=== PATIENT | female | born 1995 | race Caucasian/White ===

== ENCOUNTER 2016-10-25 21:01 | Emergency (ER) | payer OTHER ==
[~2016-10-25] VITALS: Ht 154.9 cm; Wt 61.9 kg
[2016-10-25 21:05] VITALS: TEMP 36.3; Ht 154.9 cm; Wt 61.9 kg
[2016-10-25] MEDS ORDERED: DEXAMETHASONE SOD INJ 4 MG/ML VIAL IV STA (22:07)
[2016-10-25] MEDS ORDERED: PROCHLORPERAZINE 5 MG/ML 2 ML VIAL IV STA (22:07)
[2016-10-25] MEDS ORDERED: KETOROLAC TROMETHAMINE 15 MG/ML VIAL IV STA (22:07)
[2016-10-25] MEDS ORDERED: SODIUM CHLORIDE 0.9% 1000ML 1,000 ML IV STA (22:07)
[2016-10-25] MEDS ORDERED: DiphenhydrAMINE HCL 50 MG/ML VIAL IV STA (22:07)
[2016-10-25] MEDS ORDERED: KETOROLAC TROMETHAMINE 30 MG/ML VIAL ONE (22:14)
[2016-10-25] MEDS ORDERED: BCPILLS PO (23:22)
--- NOTE | 2016-10-25 23:49 | EMERGENCY ROOM VISIT NOTE ---
History First contact with patient: 21:50 Chief Complaint: HEADACHE Stated Complaint: HEADACHE,NUMBNESS/TINGLING IN HEAD, BLURRED VISION History of Present Illness The patient is a 21 year old female who presents to the Emergency Room with complaints of a migraine headache which started approximately 5 hours ago. The patient states that She has a history of migraines and this feels like a typical migraine for her. She reports that prior to the onset of migraine, she had blurred vision. The headache is right-sided. She has associated nausea, but no vomiting. She took ibuprofen and Imitrex without relief. She does not see a neurologist, but sees her PCP at home regarding her migraines. She has had to come to ERs before for her migraines. She denies any recent illnesses, fevers/chills, neck pain/ stiffness, numbness or weakness. Review of Systems A complete 10 point review of systems was reviewed with the patient with pertinent positives and negatives as per history of present illness. All else were negative. Social History Smoking Status: Never Smoker Current/Historical Medications Scheduled Control Pills ( Control Pills), 1 TAB PO DAILY Physical Exam Vital Signs Date Time Temp Pulse Resp B/P (MAP) Pulse Ox O2 Delivery O2 Flow Rate FiO2 10/26/16 00:01 77 17 122/75 100 10/25/16 22:50 65 17 124/106 98 Room Air 10/25/16 21:55 62 15 147/98 99 Room Air 10/25/16 21:05 36.3 93 18 140/95 92 Room Air Physical Exam VITALS: Vitals are noted on the nurse's note and reviewed by myself. Vital signs stable. GENERAL: This is a 21-year-old female, in no acute distress, nondiaphoretic, well-developed well-nourished. SKIN: The skin was without rashes. HEAD: Normocephalic atraumatic. EARS: External auditory canals clear, tympanic membranes pearly machuca without erythema or effusion bilaterally. EYES: Pupils equal round and reactive to light and accommodation. Conjunctivae without injection, sclerae without icterus. Extraocular movements intact. MOUTH: Mucous membranes moist. Tonsils are not enlarged. Pharynx without erythema or exudate. NECK: Supple without nuchal rigidity. No lymphadenopathy. No meningismus. HEART: Regular rate and rhythm without murmurs gallops or rubs. LUNGS: Clear to auscultation bilaterally without wheezes, rales or rhonchi. MUSCULOSKELETAL: Full range of motion throughout. Strength 5/5 throughout. NEURO: Patient was alert and oriented to person place and time. Normal sensation to light and sharp touch. No focal neurological deficits. Medical Decision & Procedures Medications Administered Medications (Trade) Dose Ordered Sig/Judith Route Start Time Stop Time Status Last Admin Dose Admin Dexamethasone Sodium Phosphate (Decadron Inj) 10 mg NOW STAT IV 10/25/16 22:07 10/25/16 22:10 DC 10/25/16 22:41 10 MG Diphenhydramine HCl (Benadryl Inj) 25 mg NOW STAT IV 10/25/16 22:07 10/25/16 22:10 DC 10/25/16 22:41 25 MG Prochlorperazine Edisylate (Compazine Inj) 10 mg NOW STAT IV 10/25/16 22:07 10/25/16 22:10 DC 10/25/16 22:40 10 MG Ketorolac Tromethamine (Toradol Inj) 15 mg NOW STAT IV 10/25/16 22:07 10/25/16 22:10 DC 10/25/16 22:07 15 MG Sodium Chloride 1,000 ml @ 999 mls/hr Q1H1M STAT IV 10/25/16 22:07 10/25/16 23:07 DC 10/25/16 22:42 999 MLS/HR ED Course The patient was evaluated as above. Labs were drawn and IV access was obtained. Patient was medicated with 25 mg Benadryl, and 10 mg Compazine, 10 mg drawn and 15 mg Toradol IV. She was hydrated with 1 L normal saline solution. Patient was reevaluated and stated she felt much better. She is ready for discharge. Discharge instructions were reviewed with the patient. The patient verbalized understanding of my assessment and treatment plan and was discharged home in good condition. Medical Decision The differential diagnosis includes acute intracranial bleed, meningitis, encephalitis, mass or mass effect, sinusitis, infection, tumor, headache, temporal arteritis and carbon monoxide exposure, and migraine. The patient is a 21-year-old female who presents today complaining of a headache consistent with previous migraines she has had. She is afebrile. There is no evidence of meningitis or encephalitis on exam. This is not the worst headache of her life. She felt much better after receiving the above treatment. She felt ready to be discharged home. The patient was educated to return to the emergency department for any worsening of their current condition or new/concerning symptoms. She will follow up with her PCP. Medication Reconcilliation Current Medication List: was personally reviewed by me Blood Pressure Screening Patient's blood pressure: Elevated blood pressure Blood pressure disposition: Elevated BP felt to be situational Impression Primary Impression: Migraine Departure Information Dispostion Home / Self-Care Condition GOOD Referrals [facility] (PCP) Patient Instructions My [facility] Additional Instructions You have been treated in the Emergency Department for a Headache. You have received pain medicine in the emergency department which impairs your ability to operate a vehicle. It is illegal for you to drive after receiving these medicines. For pain control, you can use the following [id number] medicines (if >12 yo): - Regular strength (325mg/tab) Tylenol (acetaminophen) 2 tabs every 4-6 hours as needed. Do not exceed 12 tablets in a 24 hour period. Avoid taking more than 4 grams (4000 mg) of Tylenol per day. This includes any other sources of acetaminophen you may take on a regular basis. - Regular strength (200 mg/tab) Advil (ibuprofen) 1-2 tabs every 4-6 hours as needed. Do not exceed a dose of 3200 mg per day. You should relax in a quiet, dark place for the rest of the day. Avoid any possible triggers including: cigarette smoke, caffeine, nicotine, chocolate, wine, beer, loud noises or music, or bright lights. You should schedule a follow-up appointment in 2-3 days with your Primary Care Provider or established Neurologist for further evaluation and treatment of your Headache. Return to the Emergency Department if your current symptoms worsen despite treatment course outlined above, or if you develop any of the following symptoms : intractable pain despite aforementioned treatment course, visual disturbances , loss of vision, unilateral weakness or facial drooping, slurring of speech, loss of coordination, or loss of consciousness.
[2016-10-26 00:01] VITALS: BP 122/75; PULSE 77; O2SAT 100
== END 2016-10-26 | disposition home or self-care (01) ==
LOC: C.EDB 21:03
DX: G43.909 Migraine, unspecified, not intractable, without status migrainosus (principal)

== ENCOUNTER 2017-03-24 15:48 | Emergency (ER) | payer OTHER ==
[~2017-03-24] VITALS: Ht 154.9 cm; Wt 61.1 kg
[2017-03-24 16:00] VITALS: Ht 154.9 cm; Wt 61.1 kg
[2017-03-24] MEDS ORDERED: KETOROLAC TROMETHAMINE 30 MG/ML VIAL IV STA (16:15)
[2017-03-24] MEDS ORDERED: DiphenhydrAMINE HCL 50 MG/ML VIAL IV STA (16:15)
[2017-03-24] MEDS ORDERED: SODIUM CHLORIDE 0.9% 1000ML 1,000 ML IV STA (16:15)
[2017-03-24] MEDS ORDERED: PROCHLORPERAZINE 5 MG/ML 2 ML VIAL IV STA (16:15)
--- NOTE | 2017-03-24 16:17 | EMERGENCY ROOM VISIT NOTE ---
History Report prepared by Courtney: Rafita Peacock Under the Supervision of: Dr. Ning Miranda D.O. First contact with patient: 16:04 Chief Complaint: VERTIGO Stated Complaint: VERTIGO, HEADACHE,NAUSEA Nursing Triage Summary: pt states she was standing at work and her vision 'went black" continues visual loss,breathing hard hands numb, nausea hx of vertigo and migraine pt took medication at 1230 wutg no relief History of Present Illness The patient is a 21 year old female with a history of migraines who presents to the Emergency Room with complaints of a persistent headache that started earlier today. She says that she was at work and it was going normally, but while she was standing, she was unable to see the top-half of her visual field, especially on the periphery. Not sudden onset of headache, however gradually worsening. The patient states that she normally gets visual difficulties like this before getting a migraine headache, and today, the migraine headache came on again. The patient adds that the headache is on her left side and radiates to the front a bit. She notes that she is sensitive to noise today with her headache. The patient notes that her headache location varies regarding her previous ones. She states that she gets headaches this badly 6 to 7 times per year, but usually Sumatriptan works for her, but today, the Sumatriptan did not work. The patient says that she is still nauseous. She adds that she is dizzy and lightheaded, but does not feel like she is going to pass out. She notes that she had an episode of numbness and tingling of her hands prior to arrival, and that is normal with her headaches. The patient says that she has been diagnosed with migraines. She notes no family history of migraines. She adds that she has been sick for the past few weeks. The patient denies any neck pain , abdominal pain, urinary symptoms, or bowel problems. Source of History: patient Onset: Earlier today Position: head Quality: other (migraine - similar to previous ones) Timing: other (persistent) Associated Symptoms: + nausea, + weakness (and tingling episode of hands), No LOC, No neck pain, No abdominal pain, No urinary symptoms (or bowel problems) Note: Associated symptoms: Dizzy and lightheaded. Visual difficulties. Review of Systems See HPI for pertinent positives & negatives. A total of 10 systems reviewed and were otherwise negative. Past Medical & Surgical Medical Problems: (1) Migraines Family History No pertinent family history Social History Smoking Status: Never Smoker Smokeless Tobacco Use: No Marital Status: single Occupation Status: student Current/Historical Medications Scheduled Control Pills ( Control Pills), 1 TAB PO DAILY Allergies Coded Allergies: No Known Allergies (Unverified , 10/25/16) Physical Exam Vital Signs Date Time Temp Pulse Resp B/P (MAP) Pulse Ox O2 Delivery O2 Flow Rate FiO2 03/24/17 18:41 36.8 03/24/17 18:40 36.8 85 14 121/87 99 03/24/17 16:00 36.9 93 18 161/93 100 Room Air Physical Exam GENERAL: alert, well appearing, well nourished, no distress, non-toxic EYE EXAM: normal conjunctiva, PERRL and EOM's grossly intact, mild disturbances of peripheral vision bilaterally. OROPHARYNX: no exudate, no erythema, lips, buccal mucosa, and tongue normal and mucous membranes are moist NECK: supple, no nuchal rigidity, no adenopathy, non-tender LUNGS: Clear to auscultation. Normal chest wall mechanics HEART: no murmurs, S1 normal and S2 normal ABDOMEN: abdomen soft, non-tender, normo-active bowel sounds, no masses, no rebound or guarding. BACK: Back is symmetrical on inspection and there is no deformity, no midline tenderness, no CVA tenderness. SKIN: no rashes and no bruising UPPER EXTREMITIES: upper extremities are grossly normal. Normal range of motion and normal pulses. LOWER EXTREMITIES: No pitting edema. Normal range of motion and normal pulses. NEURO EXAM: Normal sensorium, cranial nerves II-XII grossly intact, normal speech, no gross weakness of arms, no gross weakness of legs. No ataxia. Ambulating with a steady gait. Medical Decision & Procedures ER Provider Diagnostic Interpretation: CT results have been interpreted by the radiologist and reviewed by me. HEAD CT NONCONTRAST CT DOSE: 537.48 mGy.cm HISTORY: atypical migraine TECHNIQUE: Multiaxial CT images of the head were performed without the use of intravenous contrast. Automated exposure control was utilized for this study. A dose lowering technique was utilized adhering to the principles of ALARA. Comparison: None. Findings: The paranasal sinuses and mastoid air cells are clear. The calvarium and skull base are intact. The ventricles and sulci are within normal limits. There is no mass, hematoma, midline shift, or acute infarct. Impression: No acute intracranial abnormality. Electronically signed by: Francisco Posada M.D. 03/24/2017 5:54 PM Dictated Date/Time: 03/24/2017 5:52 PM Medications Administered Medications (Trade) Dose Ordered Sig/Judith Route Start Time Stop Time Status Last Admin Dose Admin Sodium Chloride 1,000 ml @ 999 mls/hr Q1H1M STAT IV 03/24/17 16:15 03/24/17 17:15 DC 03/24/17 16:48 999 MLS/HR Ketorolac Tromethamine (Toradol Inj) 30 mg NOW STAT IV 03/24/17 16:15 03/24/17 16:17 DC 03/24/17 16:46 30 MG Prochlorperazine Edisylate (Compazine Inj) 5 mg NOW STAT IV 03/24/17 16:15 03/24/17 16:17 DC 03/24/17 16:47 5 MG Diphenhydramine HCl (Benadryl Inj) 12.5 mg NOW STAT IV 03/24/17 16:15 03/24/17 16:17 DC 03/24/17 16:46 12.5 MG ED Course 1606: The patient was evaluated in room A3. A complete history and physical exam was performed. 1615: Ordered Benadryl Inj 12.5 mg IV, Compazine Inj 5 mg IV, Toradol Inj 30 mg IV, NSS 1000 ml @ 999 mls/hr IV. 1815: Upon reevaluation, the patient is feeling better. I discussed the findings and the treatment plan with the patient. She verbalizes agreement and understanding. She was discharged home. 1851: I had a bedside discussion with the patient's father. Medical Decision Differential diagnosis: Etiologies such as migraine headache, meningitis, sinusitis, CO exposure, ICH, SAH, infection, tumor, headache, sinus thrombosis, arterial dissection, as well as others were entertained. Patient's CT reassuring and majority of patient's symptoms consistent with prior episodes of migraine headaches. Patient concern due to lack of improvement with her usual migraine medication. Patient improved here following medications and IV fluids. Discussed with patient follow-up, symptoms to watch return for she verbalized understanding. He is also discussed with father once he arrived at bedside as well. I do not suspect subarachnoid hemorrhage, meningitis/encephalitis, central venous sinus thrombus , intracranial abscess, dissection, CVA, cerebellar infarct or bleed. Medication Reconcilliation Current Medication List: was personally reviewed by me Blood Pressure Screening Patient's blood pressure: Elevated blood pressure Blood pressure disposition: Elevated BP felt to be situational Impression Primary Impression: Migraine Scribe Attestation The scribe's documentation has been prepared under my direction and personally reviewed by me in its entirety. I confirm that the note above accurately reflects all work, treatment, procedures, and medical decision making performed by me. Departure Information Dispostion Home / Self-Care Referrals [facility] (PCP) Patient Instructions My [facility] Additional Instructions Please avoid any potential triggers for your migraines. Please drink plenty of water. Please discuss your migraine medications and migraine variations with your family doctor. You may benefit from referral to a neurologist. If you have any recurrent headaches, vision changes, dizziness, vomiting, fevers, develop episodes of blacking out, feel your headaches are atypical for her usual migraines, or you've any other new concerns, please return the emergency room. Problem Qualifiers Primary Impression: Migraine Migraine type: unspecified Status migrainosus presence: without status migrainosus Intractability: not intractable Qualified Codes: G43.909 - Migraine, unspecified, not intractable, without status migrainosus
--- NOTE | 2017-03-24 17:55 | DIAGNOSTIC IMAGING REPORT ---
HEAD CT NONCONTRAST CT DOSE: 537.48 mGy.cm HISTORY: atypical migraine TECHNIQUE: Multiaxial CT images of the head were performed without the use of intravenous contrast. Automated exposure control was utilized for this study. A dose lowering technique was utilized adhering to the principles of ALARA. Comparison: None. Findings: The paranasal sinuses and mastoid air cells are clear. The calvarium and skull base are intact. The ventricles and sulci are within normal limits. There is no mass, hematoma, midline shift, or acute infarct. Impression: No acute intracranial abnormality. Electronically signed by: Francisco Posada M.D. 03/24/2017 5:54 PM Dictated Date/Time: 03/24/2017 5:52 PM
[2017-03-24 18:40] VITALS: BP 121/87; PULSE 85; O2SAT 99
[2017-03-24 18:41] VITALS: TEMP 36.8
[2017-03-24] MEDS ORDERED: BCPILLS PO (23:22)
== END 2017-03-24 19:00 | disposition home or self-care (01) ==
LOC: C.EDB 15:49 → C.EDA 19:00
DX: G43.909 Migraine, unspecified, not intractable, without status migrainosus (principal); Z79.3 Long term (current) use of hormonal contraceptives